=== PATIENT | male | born 1960 | race African-American/Black ===

== ENCOUNTER 2017-11-01 09:14 | Emergency (ER) | payer BC, OTHER ==
[~2017-11-01] VITALS: Ht 180.3 cm; Wt 98.0 kg
--- NOTE | ~2017-11-01 | EKG ---
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1960 Requested By: Quang Husain Order Number: [id number] MD: Jason Degroot Measurements Intervals [place] Rate: 65 P: 17 CA: 146 QRS: -15 QRSD: 90 T: 134 QT: 428 QTc: 445 Interpretive Statements Sinus rhythm LVH with secondary repolarization abnormality Anterior Q waves, possibly due to LVH Baseline wander in lead(s) V6 Compared to ECG 03/25/2016 13:16:41 Q waves now present Electronically Signed On 11-01-2017 21:28:39 CDT by Jason Degroot [email or web address] <ELECTRONICALLY SIGNED> By: Jason Degroot MD 11/01/178 7 7 Jason Degroot MD /JUANA
[~2017-11-01 09:14] MED LIST: AMLODIPINE BESY10 MG PO; ASPIRIN325 PO; GLUCOPHAGE500 MG PO; LISINOPRIL10 MG PO
[2017-11-01 10:06] LABS: ABSOLUTE NEUTROPHILS 5.1 thou/uL (1.4-8.2); BASOPHILS 0.8 % (0.0-2.0); EOSINOPHILS 3.7 % (0.0-3.0); HEMATOCRIT 42.6 % (42.0-52.0); HEMOGLOBIN 14.4 gm/dL (14.0-18.0); LYMPHOCYTES 26.6 % (24.0-44.0); MCH 28.4 pg (26.0-34.0); MCHC 33.9 g/dL (28.0-37.0); MCV 83.6 fL (80.0-100.0); MONOCYTES 9.5 % (1.0-8.0); PLATELET COUNT 169 thou/uL (150-400); POLYS 59.4 % (36.0-66.0); RBC 5.09 mil/uL (4.50-6.00); RDW 13.8 % (10.5-14.5); WBC 8.6 thou/uL (4.0-11.0)
[2017-11-01 10:22] LABS: APTT 25.7 Seconds (24.5-32.8); PROTIME 9.8 Seconds (9.3-11.4)
[2017-11-01 10:59] LABS: ANION GAP 7 mmol/L (7-16); BUN 15 mg/dL (7-18); CALCIUM 8.9 mg/dL (8.5-10.1); CHLORIDE 102 mmol/L (98-107); CO2 27 mmol/L (21-32); CREATININE 1.1 mg/dL (0.7-1.3); GLUCOSE 252 mg/dL (74-106); POTASSIUM 4.4 mmol/L (3.5-5.1); SODIUM 136 mmol/L (136-145)
[2017-11-01 11:08] LABS: TROPONIN-I < 0.04 ng/mL (<0.06)
[2017-11-01] MEDS ORDERED: COLACE100 MG PO (11:48)
[2017-11-02] MEDS ORDERED: METFORMIN HCL500 MG PO (12:05)
[2017-11-02] MEDS ORDERED: LIPITOR 20 MG T20 M1 PO (12:05)
[2017-11-02] MEDS ORDERED: PREDNISONE 10 M10 MG PO (12:09)
[2017-11-02] MEDS ORDERED: CLONIDINE0.1 PO (12:09)
[2017-11-02] MEDS ORDERED: ACYCLOVIR 800800 MG PO (12:09)
== END 2017-11-01 12:05 | disposition home or self-care (01) ==
LOC: ER 09:14
PROVIDERS: Nurse Practitioner
DX: I10 Essential (primary) hypertension (principal); K62.5 Hemorrhage of anus and rectum; E11.65 Type 2 diabetes mellitus with hyperglycemia; R42 Dizziness and giddiness

== ENCOUNTER 2017-11-02 11:08 | Emergency (ER) | payer BC, OTHER ==
[~2017-11-02] VITALS: Ht 180.3 cm; Wt 97.5 kg
--- NOTE | ~2017-11-02 | EKG ---
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 : 1960 Requested By: Lesley Ortiz Order Number: [id number] MD: Jason Degroot Measurements Intervals [place] Rate: 62 P: -8 SC: 141 QRS: -15 QRSD: 91 T: 131 QT: 432 QTc: 439 Interpretive Statements Sinus rhythm Left ventricular hypertrophy with secondary repolarization abnormalities Anterior ST elevation, probably due to LVH Compared to ECG 11/01/2017 09:38:12 Electronically Signed On 11-02-2017 16:58:19 CDT by Jason Degroot [email or web address] <ELECTRONICALLY SIGNED> By: Jason Degroot MD 11/02/17 1658 [id number] 37 Jason Degroot MD /JUANA
[~2017-11-02 11:08] MED LIST changes: +COLACE100 MG PO
[2017-11-02 11:46] LABS: ABSOLUTE NEUTROPHILS 4.6 thou/uL (1.4-8.2); BASOPHILS 1.1 % (0.0-2.0); EOSINOPHILS 3.1 % (0.0-3.0); HEMATOCRIT 44.9 % (42.0-52.0); HEMOGLOBIN 15.3 gm/dL (14.0-18.0); LYMPHOCYTES 27.8 % (24.0-44.0); MCH 28.3 pg (26.0-34.0); MCV 83.1 fL (80.0-100.0); MONOCYTES 8.7 % (1.0-8.0); PLATELET COUNT 166 thou/uL (150-400); POLYS 59.3 % (36.0-66.0); WBC 7.8 thou/uL (4.0-11.0)
[2017-11-02 11:55] LABS: ANION GAP 4 mmol/L (7-16); BUN 15 mg/dL (7-18); CALCIUM 9.2 mg/dL (8.5-10.1); CHLORIDE 101 mmol/L (98-107); CO2 28 mmol/L (21-32); CREATININE 1.1 mg/dL (0.7-1.3); GLUCOSE 239 mg/dL (74-106); POTASSIUM 3.9 mmol/L (3.5-5.1); SODIUM 133 mmol/L (136-145)
[2017-11-02 12:04] LABS: TROPONIN-I < 0.04 ng/mL (<0.06)
[2017-11-02] MEDS ORDERED: METFORMIN HCL500 MG PO (12:05)
[2017-11-02] MEDS ORDERED: LIPITOR 20 MG T20 M1 PO (12:05)
[2017-11-02] MEDS ORDERED: CLONIDINE0.1 PO (12:09)
[2017-11-02] MEDS ORDERED: PREDNISONE 10 M10 MG PO (12:09)
[2017-11-02] MEDS ORDERED: ACYCLOVIR 800800 MG PO (12:09)
== END 2017-11-02 12:44 | disposition home or self-care (01) ==
LOC: ER 11:08
PROVIDERS: Emergency Medicine
DX: G51.0 Bell's palsy (principal); I16.0 Hypertensive urgency